=== PATIENT | female | born 1950 | race Caucasian/White ===

== ENCOUNTER 2018-04-12 09:09 | Day surgery (SDC) | payer MEDICARE, OTHER ==
[2018-04-12] MEDS ORDERED: DIPRIVAN 200 MG/20 ML IV ONE (09:10)
[2018-04-12] MEDS ORDERED: Marcaine 0.5% SDV 10 ML IJ ONE (09:10)
[2018-04-12] MEDS ORDERED: Depo-Medrol 40 MG/ML IM ONE (09:10)
[2018-04-12] MEDS ORDERED: Sensorcaine 0.25% 10 ML IJ ONE (09:10)
[2018-04-12] MEDS ORDERED: Lactated Ringers 1,000 ML IV ONE (11:29)
--- NOTE | 2018-04-12 11:45 | XRAY ---
17 seconds fluoroscopy time in surgery for left hip injection.
--- NOTE | 2018-04-12 14:58 | XRAY ---
Indication: Left hip and bursa injections. Intraoperative fluoroscopy was provided for 17 seconds. 2 digital spot images submitted for interpretation demonstrates needle tip just lateral to the femur neck and second needle tip lateral to the greater trochanter. Small contrast injected at both sites for needle tip placement. Correlate with intraoperative findings/report.
== END 2018-04-12 10:36 | disposition home or self-care (01) ==
LOC: SDC-PAIN 09:09
PROVIDERS: ATTEND Psychiatry & Neurology Pain Medicine
DX: M16.12 Unilateral primary osteoarthritis, left hip (principal); M70.62 Trochanteric bursitis, left hip; M46.1 Sacroiliitis, not elsewhere classified; E10.9 Type 1 diabetes mellitus without complications; Z79.899 Other long term (current) drug therapy
CPT/HCPCS: 20611; 73501; 77002; 82962; J1030; J2704; Q9967

== ENCOUNTER 2018-12-27 10:33 | Day surgery (SDC) | payer MEDICARE, OTHER ==
[2018-12-27] MEDS ORDERED: Marcaine 0.5% SDV 10 ML IJ ONE (10:34)
[2018-12-27] MEDS ORDERED: DIPRIVAN 200 MG/20 ML IV ONE (11:10)
[2018-12-27] MEDS ORDERED: Ketamine HCl 50 MG/ML ONE (11:10)
--- NOTE | 2018-12-27 12:27 | XRAY ---
8 seconds fluoroscopy time in surgery for left genicular nerve block.
--- NOTE | 2018-12-27 12:28 | XRAY ---
Indication: Left genicular nerve block. Intraoperative fluoroscopy was provided for 8 seconds. 2 digital spot images submitted for interpretation demonstrates needle tips projecting immediately superior to the medial/lateral left femur condyles and medial tibial plateau. Correlate with intraoperative findings/report.
[2018-12-27] MEDS ORDERED: Lactated Ringers 1,000 ML IV ONE (16:17)
== END 2018-12-27 11:40 | disposition home or self-care (01) ==
LOC: SDC-PAIN 10:33
PROVIDERS: ATTEND Psychiatry & Neurology Pain Medicine
DX: M17.12 Unilateral primary osteoarthritis, left knee (principal); E10.9 Type 1 diabetes mellitus without complications; M79.7 Fibromyalgia; Z79.899 Other long term (current) drug therapy
CPT/HCPCS: 73560; 77002; J2704

== ENCOUNTER 2019-01-17 10:22 | Day surgery (SDC) | payer MEDICARE, OTHER ==
[2019-01-17] MEDS ORDERED: Marcaine Mpf 0.5% Vial 30 Ml IJ ONE (10:23)
[2019-01-17] MEDS ORDERED: Depo-Medrol 40 MG/ML IM ONE (10:23)
[2019-01-17] MEDS ORDERED: Xylocaine 1% Vial 30 ML PF IJ ONE (10:23)
[2019-01-17] MEDS ORDERED: Ketamine HCl 50 MG/ML ONE (11:33)
[2019-01-17] MEDS ORDERED: DIPRIVAN 200 MG/20 ML IV ONE ×2 (11:33→11:56)
--- NOTE | 2019-01-17 14:28 | XRAY ---
Indication: Left knee genicular ablation. Intraoperative fluoroscopy was provided for 36 seconds. 3 digital spot images of the left knee submitted for interpretation demonstrates needle tips projecting medial/lateral supracondylar and medial tibial plateau. Correlate with intraoperative findings/report.
--- NOTE | 2019-01-17 14:32 | XRAY ---
36 seconds fluoroscopy time in surgery for left genicular nerve ablation.
[2019-01-17] MEDS ORDERED: Lactated Ringers 1,000 ML IV ONE (17:03)
== END 2019-01-17 12:18 | disposition home or self-care (01) ==
LOC: SDC-PAIN 10:22
PROVIDERS: ATTEND Psychiatry & Neurology Pain Medicine
DX: M17.12 Unilateral primary osteoarthritis, left knee (principal); E10.9 Type 1 diabetes mellitus without complications; M79.7 Fibromyalgia; Z79.899 Other long term (current) drug therapy
CPT/HCPCS: 64640; 73560; 77002; 82962; J1030; J2001; J2704

== ENCOUNTER 2019-08-15 09:52 | Day surgery (SDC) | payer MEDICARE, OTHER ==
[2019-08-15] MEDS ORDERED: Xylocaine 1% Vial 30 ML PF IJ ONE (09:53)
[2019-08-15] MEDS ORDERED: Decadron 4 MG INJ IV ONE (09:53)
[2019-08-15] MEDS ORDERED: Sodium Chloride 0.9(Preservative Free) 10 ML IJ ONE (09:53)
[2019-08-15] MEDS ORDERED: Depo-Medrol 40 MG/ML IM ONE (09:53)
[2019-08-15] MEDS ORDERED: Ketamine HCl 50 MG/ML ONE (11:19)
[2019-08-15] MEDS ORDERED: DIPRIVAN 200 MG/20 ML IV ONE (11:19)
--- NOTE | 2019-08-15 12:13 | XRAY ---
Indication: Left L4-S1 transforaminal CARLA. Intraoperative fluoroscopy was provided for 23 seconds. 4 digital spot images submitted for interpretation demonstrate posterior needle tips projecting over the expected course of the left L4 and L5 nerve roots. Small amount of contrast injected for needle tip placement. Correlate with intraoperative findings/report.
--- NOTE | 2019-08-15 12:15 | XRAY ---
Indication: Left piriformis injectio. Intraoperative fluoroscopy was provided for 10 seconds. Single digital spot image submitted for interpretation demonstrates posterior needle tip projecting over the expected left piriformis muscle. Small amount of contrast injected for needle tip placement. Correlate with intraoperative findings/report.
--- NOTE | 2019-08-15 12:20 | XRAY ---
23 seconds fluoroscopy time in surgery for left L4-S1 transforaminal CARLA.
--- NOTE | 2019-08-15 12:20 | XRAY ---
10 seconds fluoroscopy time in surgery for left pirifomis muscle injection.
[2019-08-15] MEDS ORDERED: Lactated Ringers 1,000 ML IV ONE (15:55)
== END 2019-08-15 11:43 | disposition home or self-care (01) ==
LOC: SDC-PAIN 09:52
PROVIDERS: ATTEND Psychiatry & Neurology Pain Medicine
DX: M54.16 Radiculopathy, lumbar region (principal); M79.18 Myalgia, other site; E11.9 Type 2 diabetes mellitus without complications; M19.90 Unspecified osteoarthritis, unspecified site; G43.909 Migraine, unspecified, not intractable, without status migrainosus; Z79.899 Other long term (current) drug therapy
CPT/HCPCS: 20552; 64483; 64484; 72020; 72100; 77002; 77003; 82962; J1030; J1100; J2001; J2704; Q9966

== ENCOUNTER 2020-07-16 08:09 | Day surgery (SDC) | payer MEDICARE, OTHER ==
[2020-07-16] MEDS ORDERED: Depo-Medrol 40 MG/ML IM ONE (08:10)
[2020-07-16] MEDS ORDERED: BUPIVACAINE 0.5% VIAL IJ ONE (08:10)
--- NOTE | 2020-07-16 10:39 | XRAY ---
14 seconds fluoroscopy time in surgery for intra-articular injection of the left hip.
--- NOTE | 2020-07-16 10:49 | XRAY ---
Indication: Left hip injection. Intraoperative fluoroscopy provided 14 seconds. 2 digital spot images submitted for interpretation demonstrates needle tip lateral to the left femur neck. Small amount of contrast injected for needle tip placement. Correlate with intraoperative findings/report.
[2020-07-16] MEDS ORDERED: Lactated Ringers 1,000 ML IV ONE (15:39)
== END 2020-07-16 09:36 | disposition home or self-care (01) ==
LOC: SDC-PAIN 08:09
PROVIDERS: ATTEND Psychiatry & Neurology Pain Medicine
DX: M16.12 Unilateral primary osteoarthritis, left hip (principal); M19.90 Unspecified osteoarthritis, unspecified site; M79.7 Fibromyalgia; E10.9 Type 1 diabetes mellitus without complications; Z79.899 Other long term (current) drug therapy
CPT/HCPCS: 20610; 73501; 77002; 82947; J1030; Q9966

== ENCOUNTER 2020-10-08 08:47 | Day surgery (SDC) | payer MEDICARE, OTHER ==
[2020-10-08] MEDS ORDERED: BUPIVACAINE 0.5% VIAL IJ ONE (08:48)
[2020-10-08] MEDS ORDERED: Sodium Chloride 0.9(Preservative Free) 10 ML IJ ONE (08:48)
[2020-10-08] MEDS ORDERED: Depo-Medrol 40 MG/ML IM ONE (08:48)
[2020-10-08] MEDS ORDERED: BOTOX IJ ONE (08:48)
[2020-10-08] MEDS ORDERED: Lactated Ringers 1,000 ML IV ONE (10:01)
[2020-10-08] MEDS ORDERED: DIPRIVAN 200 MG/20 ML IV ONE (10:34)
--- NOTE | 2020-10-08 12:34 | XRAY ---
Indication: Left hip injection. Intraoperative fluoroscopy provided for 9 seconds. Single digital spot image demonstrates needle tip projecting lateral to the left greater trochanter. Small amount of contrast injected for needle tip placement. Correlate with intraoperative findings/report.
--- NOTE | 2020-10-08 13:06 | XRAY ---
9 seconds fluoroscopy time in surgery for injection of the greater trochanter of the left hip.
== END 2020-10-08 11:12 | disposition home or self-care (01) ==
LOC: SDC-PAIN 08:47
PROVIDERS: ATTEND Psychiatry & Neurology Pain Medicine
DX: M16.12 Unilateral primary osteoarthritis, left hip (principal); G43.709 Chronic migraine without aura, not intractable, without status migrainosus; E10.8 Type 1 diabetes mellitus with unspecified complications; Z79.899 Other long term (current) drug therapy
CPT/HCPCS: 20610; 64615; 73501; 77002; 82947; J0585; J1030; J2704; Q9966

== ENCOUNTER 2021-03-18 09:37 | Day surgery (SDC) | payer MEDICARE, OTHER ==
[2021-03-18] MEDS ORDERED: Decadron 4 MG INJ IV ONE (09:38)
[2021-03-18] MEDS ORDERED: Depo-Medrol 40 MG/ML IM ONE (09:38)
[2021-03-18] MEDS ORDERED: Xylocaine 1% Vial 30 ML PF IJ ONE (09:38)
[2021-03-18] MEDS ORDERED: BUPIVACAINE 0.5% VIAL IJ ONE (09:38)
[2021-03-18] MEDS ORDERED: DIPRIVAN 200 MG/20 ML IV ONE (12:14)
[2021-03-18] MEDS ORDERED: Lactated Ringers 1,000 ML IV ONE (13:20)
--- NOTE | 2021-03-18 13:32 | XRAY ---
Indication: Left piriformis injection. Intraoperative fluoroscopy provided for 10 seconds. Single digital spot image submitted for interpretation demonstrate posterior needle tip projecting over the expected left piriformis muscle. Small amount of contrast injected for needle tip placement. Correlate with intraoperative findings/report.
--- NOTE | 2021-03-18 13:34 | XRAY ---
Indication: Left greater trochanter bursa injection. Intraoperative fluoroscopy provided for 10 seconds. Single digital spot image obtained prone submitted for interpretation demonstrate needle tip lateral to the left greater trochanter. Small amount of contrast injected for needle tip placement. Correlate with intraoperative findings/report.
--- NOTE | 2021-03-18 14:25 | XRAY ---
10 seconds fluoroscopy time in surgery for injection of the left piriformis muscle.
--- NOTE | 2021-03-18 14:35 | XRAY ---
10 seconds fluoroscopy time in surgery for injection of the greater trochanter of the left hip.
== END 2021-03-18 12:40 | disposition home or self-care (01) ==
LOC: SDC-PAIN 09:37
PROVIDERS: ATTEND Psychiatry & Neurology Pain Medicine
DX: M16.12 Unilateral primary osteoarthritis, left hip (principal); M79.18 Myalgia, other site; E10.9 Type 1 diabetes mellitus without complications; Z79.899 Other long term (current) drug therapy
CPT/HCPCS: 20552; 20610; 72020; 73501; 77002; 82947; J1030; J1100; J2001; J2704; Q9966

== ENCOUNTER 2021-12-23 09:43 | Day surgery (SDC) | payer MEDICARE, OTHER ==
[2021-12-23] MEDS ORDERED: Xylocaine 1% Vial 30 ML PF IJ ONE (09:44)
[2021-12-23] MEDS ORDERED: BOTOX IJ ONE (09:44)
[2021-12-23] MEDS ORDERED: Decadron 4 MG INJ IV ONE (09:44)
[2021-12-23] MEDS ORDERED: Lactated Ringers 1,000 ML IV ONE (11:52)
--- NOTE | 2021-12-23 12:02 | XRAY ---
22 seconds of fluoroscopy was used in surgery for a left piriformis muscle injection.
--- NOTE | 2021-12-23 12:04 | XRAY ---
Indication: Left piriformis injection. Intraoperative fluoroscopy provided for 22 seconds. Single digital spot image submitted for interpretation demonstrates posterior needle tip projecting over left piriformis muscle. Small amount of contrast injected for needle tip placement. Correlate with intraoperative findings/report.
== END 2021-12-23 11:45 | disposition home or self-care (01) ==
LOC: SDC-PAIN 09:43
PROVIDERS: ATTEND Psychiatry & Neurology Pain Medicine
DX: M79.18 Myalgia, other site (principal); G43.709 Chronic migraine without aura, not intractable, without status migrainosus; E10.9 Type 1 diabetes mellitus without complications; Z79.899 Other long term (current) drug therapy
CPT/HCPCS: 20552; 64615; 72170; 77002; 82947; J0585; J1100; J2001; Q9966

== ENCOUNTER 2023-06-08 09:41 | Day surgery (SDC) | payer MEDICARE, OTHER ==
[2023-06-08] MEDS ORDERED: Xylocaine-Mpf 2% 5 Ml Vial IJ ONE (09:42)
[2023-06-08] MEDS ORDERED: Depo-Medrol 40 MG/ML IM ONE (09:42)
[2023-06-08] MEDS ORDERED: Lactated Ringers 1,000 ML IV ONE (11:30)
[2023-06-08] MEDS ORDERED: DIPRIVAN 200 MG/20 ML IV ONE (11:32)
--- NOTE | 2023-06-08 12:49 | XRAY ---
Indication: Bilateral L4-S1 MBB. Intraoperative fluoroscopy provided for 10 seconds. Single digital spot image submitted for interpretation demonstrates posterior needle tips projecting over expected left and right L4-S1 nerve roots. Correlate with intraoperative findings/report.
--- NOTE | 2023-06-09 14:12 | XRAY ---
10 seconds of fluoroscopy was used in surgery for a bilateral L4-S1 MBB.
== END 2023-06-08 12:00 | disposition home or self-care (01) ==
LOC: SDC-PAIN 09:41
PROVIDERS: ATTEND Psychiatry & Neurology Pain Medicine
DX: M47.816 Spondylosis without myelopathy or radiculopathy, lumbar region (principal); E11.9 Type 2 diabetes mellitus without complications
CPT/HCPCS: 64493; 64494; 72020; 77002; 82947; J1010; J2704

== ENCOUNTER 2023-07-20 10:18 | Day surgery (SDC) | payer MEDICARE, OTHER ==
[2023-07-20] MEDS ORDERED: DIPRIVAN 200 MG/20 ML IV ONE (11:42)
--- NOTE | 2023-07-20 13:29 | XRAY ---
Indication: Bilateral L4-S1 MBB. Intraoperative fluoroscopy provided for 9 seconds. Single digital spot image submitted for interpretation demonstrates posterior needle tips projecting over the expected left and right L4-S1 nerve roots. Correlate with intraoperative findings/report.
[2023-07-20] MEDS ORDERED: Lactated Ringers 1,000 ML IV ONE (15:04)
--- NOTE | 2023-07-20 16:44 | XRAY ---
9 seconds of fluoroscopy was used in surgery for a bilateral L4-S1 MBB.
== END 2023-07-20 12:18 | disposition home or self-care (01) ==
LOC: SDC-PAIN 10:18
PROVIDERS: ATTEND Psychiatry & Neurology Pain Medicine
DX: M47.816 Spondylosis without myelopathy or radiculopathy, lumbar region (principal); E11.9 Type 2 diabetes mellitus without complications
CPT/HCPCS: 64493; 64494; 72020; 77002; 82947; J2704

== ENCOUNTER 2023-09-15 09:52 | Day surgery (SDC) | payer MEDICARE, OTHER ==
[2023-09-15] MEDS ORDERED: Pepcid 20 MG VIAL IV ONE (09:53)
[2023-09-15] MEDS ORDERED: BUPIVACAINE 0.5% VIAL IJ ONE (09:53)
[2023-09-15] MEDS ORDERED: Depo-Medrol 40 MG/ML IM ONE (09:53)
[2023-09-15] MEDS ORDERED: LIDOCAINE HCL 1% 50 MG/5 ML VL PF IJ ONE (09:53)
[2023-09-15] MEDS ORDERED: Reglan 10 MG/2 ML ONE (11:14)
[2023-09-15] MEDS ORDERED: DIPRIVAN 200 MG/20 ML IV ONE (11:29)
[2023-09-15] MEDS ORDERED: Lactated Ringers 1,000 ML IV ONE (11:39)
--- NOTE | 2023-09-15 13:51 | XRAY ---
Indication: Left L4-S1 RFA. Intraoperative fluoroscopy provided for 14 seconds. 4 digital spot image submitted for interpretation demonstrates posterior needle tips projecting over the expected left L4-S1 nerve roots. Correlate with intraoperative findings/report.
--- NOTE | 2023-09-15 13:55 | XRAY ---
14 seconds of fluoroscopy was used in surgery for a left L4-S1 RFA.
== END 2023-09-15 12:00 | disposition home or self-care (01) ==
LOC: SDC-PAIN 09:52
PROVIDERS: ATTEND Psychiatry & Neurology Pain Medicine
DX: M47.817 Spondylosis without myelopathy or radiculopathy, lumbosacral region (principal); E11.9 Type 2 diabetes mellitus without complications
CPT/HCPCS: 64635; 64636; 72100; 77002; 82947; J2001; J2704

== ENCOUNTER 2023-10-12 10:06 | Day surgery (SDC) | payer MEDICARE, OTHER ==
[2023-10-12] MEDS ORDERED: LIDOCAINE HCL 1% 50 MG/5 ML VL PF IJ ONE (10:07)
[2023-10-12] MEDS ORDERED: Depo-Medrol 40 MG/ML IM ONE (10:07)
[2023-10-12] MEDS ORDERED: BUPIVACAINE 0.5% VIAL IJ ONE (10:07)
[2023-10-12] MEDS ORDERED: DIPRIVAN 200 MG/20 ML IV ONE (12:04)
[2023-10-12] MEDS ORDERED: Lactated Ringers 1,000 ML IV ONE (12:11)
--- NOTE | 2023-10-12 13:05 | XRAY ---
Indication: Right L4-S1 RFA. Intraoperative fluoroscopy provided for 12 seconds. 3 digital spot images submitted for interpretation demonstrates posterior needle tips projecting over the expected right L4-S1 nerve roots. Correlate with intraoperative findings/report.
--- NOTE | 2023-10-12 13:09 | XRAY ---
12 seconds of fluoroscopy was used in surgery for a right L4-S1 RFA.
== END 2023-10-12 12:40 | disposition home or self-care (01) ==
LOC: SDC-PAIN 10:06
PROVIDERS: ATTEND Psychiatry & Neurology Pain Medicine
DX: M47.816 Spondylosis without myelopathy or radiculopathy, lumbar region (principal); E11.9 Type 2 diabetes mellitus without complications
CPT/HCPCS: 64635; 64636; 72100; 77002; 82947; J2001; J2704

== ENCOUNTER 2025-01-17 15:51 | Day surgery (SDC) | payer MEDICARE, OTHER ==
[2025-01-17] MEDS ORDERED: Sodium Chloride 0.9(Preservative Free) 10 ML IJ ONE (15:52)
[2025-01-17] MEDS ORDERED: methylPREDNISolone acetate IM ONE (15:52)
[2025-01-17] MEDS ORDERED: LIDOCAINE HCL 1% 50 MG/5 ML VL IJ ONE (15:52)
[2025-01-17] MEDS ORDERED: Lactated Ringers 1,000 ML IV ONE (17:18)
--- NOTE | 2025-01-17 20:04 | XRAY ---
Indication: Cervical CARLA. Intraoperative fluoroscopy provided for 27 seconds. 2 digital spot images submitted for interpretation demonstrates posterior needle tip projecting posterior to cervicothoracic junction. Small amount of contrast injected for needle tip placement. Correlate with intraoperative findings/report.
--- NOTE | 2025-01-18 09:02 | XRAY ---
27 seconds of fluoroscopy were used in surgery for a cervical CARLA.
== END 2025-01-17 18:05 | disposition home or self-care (01) ==
LOC: SDC-PAIN 15:51
PROVIDERS: ATTEND Psychiatry & Neurology Pain Medicine
DX: M54.12 Radiculopathy, cervical region (principal); E11.9 Type 2 diabetes mellitus without complications